=== PATIENT | male | born 1940 | race Caucasian/White ===

== ENCOUNTER 2019-12-07 17:33 | Inpatient (IN) ==
[2019-12-07] MEDS ORDERED: ONDANSETRON 4 MG/2 ML VIAL IV ONE (18:19)
--- NOTE | 2019-12-07 18:25 | Emergency Department Note ---
Nausea/Vomiting/Diarrhea HPI - General Chief complaint: Nausea/Vomiting/Diarrhea Stated complaint: diarrhea Source: patient Mode of arrival: ambulatory Limitations: no limitations - History of Present Illness HPI Narrative: 78-year-old male comes in complaining of fever. He has been sick for the last 2 weeks mainly with diarrhea intermittently. The sounds like loose stools but his is not sure. He is not been acting himself and has been thinking slower and moving slower. Denies shortness of breath or cough. He does have a history of postherpetic neuralgia as he had shingles 6 months ago and has not really recovered. He is not giving me much in the way of history, but he does answer most review of systems questions. He is tachycardic - Related Data Home Medications Medication Instructions Recorded Confirmed blood sugar diagnostic See Dose Instructions .ROUTE 01/12/17 03/06/19 .MEDSUPPLY aspirin 81 mg tablet,delayed 81 mg PO QDAY 03/10/17 06/12/19 release omega-3 360 oi-aal-hzi-fish oil 1 cap PO QHS cap 05/02/17 06/12/19 1,200 mg capsule,delayed release cholecalciferol (vitamin D3) 25 1,000 unit PO QHS cap 08/09/17 06/12/19 mcg (1,000 unit) capsule folic acid 800 mcg tablet 400 mcg PO QDAY 08/09/17 06/12/19 mecobalamin (vitamin B12) 1,000 500 mcg SUBLINGUAL QHS tab 08/09/17 06/12/19 mcg disintegrating tablet,sublingual Previous Rx's Medication Instructions Recorded allopurinol 300 mg tablet 300 mg PO QDAY #90 tab 11/16/18 atorvastatin 40 mg tablet 40 mg PO QDAY #90 tab 11/16/18 furosemide 20 mg tablet 20 mg PO QAM #90 tab 11/16/18 losartan 50 mg tablet 50 mg PO QDAY #90 tab 11/16/18 blood sugar diagnostic See Dose Instructions .ROUTE 12/04/18 .MEDSUPPLY #100 each fexofenadine 180 mg tablet 180 mg PO QDAY #30 tab 06/12/19 triamcinolone acetonide 0.1 % 1 applic TOPICAL BID #30 g 06/12/19 topical cream Allergies Allergy/AdvReac Type Severity Reaction Status Date / Time KALEY Inhibitors Allergy Unknown Unknown Verified 03/06/19 08:10 clindamycin [From Cleocin] Allergy Unknown Unknown Verified 03/06/19 08:10 lisinopril [From Zestril] Allergy Unknown Unknown Verified 03/06/19 08:10 pioglitazone [From Actos] Allergy Unknown Unknown Verified 03/06/19 08:10 Review of Systems All systems ED: reviewed and negative except as stated. Past Medical History - Past Medical History Attestation: Yes: The following information was validated with the patient. 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) CKD (chronic kidney disease) stage 4, GFR 15-29 ml/min (Chronic) Right knee pain (Chronic) Stroke (Chronic) Osteoporosis (Chronic) Joint pain (Chronic) Arthritis (Chronic) Type 2 diabetes mellitus without complication (Chronic) Sleep apnea (Chronic) Osteoarthritis (Chronic) Mixed hyperlipidemia (Chronic) Essential (primary) hypertension (Chronic) Encounter for long-term (current) use of high-risk medication (Chronic) Benign enlargement of prostate (Chronic) Past Surgical History (Last Reviewed 06/12/19 @ 16:02 by Nabeel Samaniego PA-C) H/O colonoscopy (Chronic 05/19/15) H/O vasectomy (Chronic) History of left knee replacement (Chronic 12/04/12) - Social History smoking status: Never smoker Physical Exam No acute distress resting comfortably. Normocephalic atraumatic. Conjunctive are clear sclerae white nonicteric. No nasal discharge or congestion. Oropharynx pink and moist. Neck is supple without lymphadenopathy or thyromegaly. Heart is regular rate and rhythm no murmur appreciated. Lungs are clear to auscultation bilaterally without wheezes rales rhonchi or respiratory distress. Abdomen is soft nontender nondistended. No peritoneal signs or guarding. He does have trace to +1 edema bilaterally to the knee or so. He is alert does seem to be oriented but he does seem to be mentating slow, most history is from his . Limitations: no limitations Course Vital Signs Temperature 101.1 F H 12/07/19 17:34 Pulse Rate 156 H 12/07/19 17:34 Respiratory Rate 18 12/07/19 17:34 Blood Pressure 113/60 12/07/19 17:34 Pulse Oximetry (%) 95 12/07/19 17:34 Temperature 98.5 F 12/07/19 20:14 Pulse Rate 70 12/07/19 20:46 Respiratory Rate 16 12/07/19 20:46 Blood Pressure 113/54 12/07/19 20:46 Pulse Oximetry (%) 94 12/07/19 20:46 Nausea/Vomiting/Diarrhea - Lab Data Lab results reviewed: Yes I reviewed the patient's lab results. Result diagrams: 12/07/19 18:31 12/07/19 18:31 Lab Results 12/07/19 12/07/19 12/07/19 Range/Units 18:30 18:30 18:31 WBC 14.1 H (4.50-11.00) K/mcL RBC 3.41 L (4.63-6.08) M/mcL Hgb 10.7 L (13.7-17.5) g/dL Hct 32.0 L (40.1-51.0) % POC Hct (41.0-55.0) % MCV 93.8 (80.0-100.0) fL MCH 31.4 (26.0-34.0) pg MCHC 33.4 (31.0-36.0) g/dL RDW 13.2 (11.5-14.5) % Plt Count 235 (140-440) K/mcL MPV 10.2 (7.4-10.4) fL Gran % 89.0 H (38.0-78.0) % Lymph % (Auto) 5.1 L (15.5-49.0) % Cloud % (Auto) 4.7 (1.0-12.0) % Eos % (Auto) 1.0 (0.0-7.0) % Baso % (Auto) 0.2 (0.0-2.0) % Gran # 12.54 H (1.80-8.00) K/mcL Lymph # (Auto) 0.72 L (1.50-4.80) K/mcL Cloud # (Auto) 0.66 (0.10-0.90) K/mcL Eos # (Auto) 0.14 (0.00-0.70) K/mcL Baso # (Auto) 0.03 (0.00-0.30) K/mcL VBG Lactic Acid 1.4 (0.5-2.0) mmol/L POC Sodium (133-145) mmol/L Sodium (133-145) mmol/L POC Potassium (3.3-5.1) mmol/L Potassium (3.3-5.1) mmol/L POC Chloride (96-108) mmol/L Chloride (96-108) mmol/L Carbon Dioxide (22-30) mmol/L POC Total CO2 (22-30) mmol/L Anion Gap (8-16) POC BUN (8-23) mg/dl BUN (8-23) mg/dl Creatinine (0.7-1.2) mg/dl POC Creatinine (0.7-1.2) mg/dl GFR Calculation Glucose (70-105) mg/dL POC Glucose (70-105) mg/dL Calcium (8.6-10.4) mg/dl POC WB Ioniz Calcium (1.16-1.32) mmol/L Total Bilirubin (0.0-1.0) mg/dL AST (0-37) U/l ALT (0-40) U/l Alkaline Phosphatase (39-117) U/L Troponin T 0.02 (0-0.03) ng/ml Total Protein (5.9-8.4) gm/dL Albumin (3.2-5.2) gm/dL Globulin (2.2-3.7) gm/dL Albumin/Globulin Ratio (1.0-2.3) Lipase (7-60) U/L 12/07/19 Range/Units 18:31 WBC (4.50-11.00) K/mcL RBC (4.63-6.08) M/mcL Hgb (13.7-17.5) g/dL Hct (40.1-51.0) % POC Hct 32.0 L (41.0-55.0) % MCV (80.0-100.0) fL MCH (26.0-34.0) pg MCHC (31.0-36.0) g/dL RDW (11.5-14.5) % Plt Count (140-440) K/mcL MPV (7.4-10.4) fL Gran % (38.0-78.0) % Lymph % (Auto) (15.5-49.0) % Cloud % (Auto) (1.0-12.0) % Eos % (Auto) (0.0-7.0) % Baso % (Auto) (0.0-2.0) % Gran # (1.80-8.00) K/mcL Lymph # (Auto) (1.50-4.80) K/mcL Cloud # (Auto) (0.10-0.90) K/mcL Eos # (Auto) (0.00-0.70) K/mcL Baso # (Auto) (0.00-0.30) K/mcL VBG Lactic Acid (0.5-2.0) mmol/L POC Sodium 135 (133-145) mmol/L Sodium 135 (133-145) mmol/L POC Potassium 3.5 (3.3-5.1) mmol/L Potassium 3.6 (3.3-5.1) mmol/L POC Chloride 102 (96-108) mmol/L Chloride 100 (96-108) mmol/L Carbon Dioxide 20 L (22-30) mmol/L POC Total CO2 22 (22-30) mmol/L Anion Gap 15.0 (8-16) POC BUN 34 H (8-23) mg/dl BUN 38 H (8-23) mg/dl Creatinine 2.5 H (0.7-1.2) mg/dl POC Creatinine 2.7 H (0.7-1.2) mg/dl GFR Calculation 23 Glucose 155 H (70-105) mg/dL POC Glucose 149 H (70-105) mg/dL Calcium 8.2 L (8.6-10.4) mg/dl POC WB Ioniz Calcium 1.10 L (1.16-1.32) mmol/L Total Bilirubin 1.0 (0.0-1.0) mg/dL AST 101 H (0-37) U/l ALT 118 H (0-40) U/l Alkaline Phosphatase 101 (39-117) U/L Troponin T (0-0.03) ng/ml Total Protein 6.4 (5.9-8.4) gm/dL Albumin 3.5 (3.2-5.2) gm/dL Globulin 2.9 (2.2-3.7) gm/dL Albumin/Globulin Ratio 1.2 (1.0-2.3) Lipase 18 (7-60) U/L Influenza swab is negative so respiratory panel ordered - Radiology Data Radiology results reviewed: Yes I reviewed the patient's radiology results. Chest x-ray shows some possible scarring but no acute infiltrate CT scan of the abdomen and pelvis without contrast shows pancolitis with sparing of the transverse colon. No perforation or abscess is seen - EKG Data EKG attestation: Yes I reviewed and interpreted this EKG., Yes There are no EKG findings of acute coronary syndrome EKG results narrative: EKG shows atrial flutter with a 2-1 block and a rapid ventricular response. Left anterior fascicular block noted-is seen on previous EKGs as well. New right bundle branch block Disposition Pt seen by MARKETING RESEARCH INTERN/PA only: No Clinical Impression: Atrial flutter with rapid ventricular response, CKD (chronic kidney disease) stage 4, GFR 15-29 ml/min, Colitis Summary: Fever with GI symptoms with diarrhea. He does report a history of postherpetic neuralgia but this could be masquerading as diverticulitis. He does not report significant pain however and his belly is nontender. So we will first look at common causes of fever including urinary tract infection and influenza. If these are negative we may check a respiratory panel and do further testing. This could be COVID but he has no respiratory symptoms at this time so this is less likely. Get lab and a chest x-ray. Further testing pending results. EKG because he is currently tachycardic EKG shows atrial flutter with left anterior fascicular block and right bundle branch block. The right bundle branch block is new as is the a flutter. I ordered metoprolol to help with this but he spontaneously converted. His rate went into the 80s and went into sinus rhythm with rest Influenza swab was negative so we ordered respiratory panel. Leukocytosis of 14 but lactic acid was normal. Chest x-ray was unrevealing CT scan of the abdomen and pelvis without contrast was ordered because of the possibility of diverticulitis with his left lower quadrant pain and diarrhea He was not able to urinate for us but his bladder scan showed over 225. CT scan of the abdomen pelvis without contrast came back showing pancolitis with sparing of the transverse colon. This could be ischemic colitis versus C. difficile colitis. Respiratory panel were negative I discussed the case with Dr. Wiley who agreed to investigate his situation further with endoscopy as an inpatient. I then discussed the case with Dr. Hardwick who agreed except the patient for further care and evaluation. He recommended we get blood cultures and start antibiotics with ciprofloxacin and Flagyl. C. difficile is also ordered and pending if we can get a stool sample. Disposition: Xfer As Inpt ([facility]) Condition: Fair Referrals: Nargis Ríos MD [Primary Care Provider] -
[2019-12-07 18:35] LABS: POC Blood Urea Nitrogen 34 mg/dl (8-23); POC CO2 22 mmol/L (22-30); POC Chloride 102 mmol/L (96-108); POC Creatinine 2.7 mg/dl (0.7-1.2); POC Glucose, Random 149 mg/dL (70-105); POC Potassium 3.5 mmol/L (3.3-5.1); POC Sodium 135 mmol/L (133-145)
[2019-12-07] MEDS ORDERED: ACETAMINOPHEN 325 MG TABLET PO ONE (18:36)
[2019-12-07 19:08] LABS: Basophils # (Auto) 0.03 K/mcL (0.00-0.30); Basophils % (Auto) 0.2 % (0.0-2.0); Eosinophils # (Auto) 0.14 K/mcL (0.00-0.70); Hemoglobin 10.7 g/dL (13.7-17.5); Lymphocytes # (Auto) 0.72 K/mcL (1.50-4.80); Lymphocytes % (Auto) 5.1 % (15.5-49.0); Mean Cell Volume 93.8 fL (80.0-100.0); Mean Corpuscular HGB Conc 33.4 g/dL (31.0-36.0); Mean Platelet Volume 10.2 fL (7.4-10.4); Monocytes # (Auto) 0.66 K/mcL (0.10-0.90); Monocytes % (Auto) 4.7 % (1.0-12.0); Platelet Count 235 K/mcL (140-440); RBC 3.41 M/mcL (4.63-6.08); Red Cell Distribution Width 13.2 % (11.5-14.5); WBC 14.1 K/mcL (4.50-11.00)
[2019-12-07 19:27] LABS: ALT/SGPT 118 U/l (0-40); AST/SGOT 101 U/l (0-37); Albumin 3.5 gm/dL (3.2-5.2); Albumin/Globulin Ratio 1.2 (1.0-2.3); Alkaline Phosphatase 101 U/L (39-117); Blood Urea Nitrogen 38 mg/dl (8-23); Calcium 8.2 mg/dl (8.6-10.4); Carbon Dioxide 20 mmol/L (22-30); Chloride 100 mmol/L (96-108); Globulin 2.9 gm/dL (2.2-3.7); Glomerular Filtration Rate 23; Glucose 155 mg/dL (70-105)
[2019-12-07] MEDS ORDERED: 0.9 % SODIUM CHLORIDE 1,000 ML IV ONE (20:20)
[2019-12-07] MEDS ORDERED: CIPROFLOXACIN 400 MG/200 ML BAG IV ONE (22:15)
[2019-12-07] MEDS ORDERED: metroNIDAZOLE 500 MG/100 ML BAG IV ONE (22:16)
--- NOTE | 2019-12-07 22:16 | Internal Med History&Physical ---
Medical - H&P: [facility] Patient information: Note initiated : 12/07/19 at 10:16 pm Service Date, if different from initiated Date: [] Patient: Vladimir Hinojosa a 78 y/o M admitted on for diarrhea. Chief Complaint: [] Chief complaint: Abdominal pain, diarrhea History of present illness: Mr. Hinojosa is a 78 year old M with a history of hypertension, gout who lives with his in [place] and presents after 2 weeks onset of intermittent abdominal cramping, diarrhea and nausea along with loss of appetite. Patient has been getting gradually getting weak along with increasing cramping. He d escribes diarrhea as watery with mucus without blood 3-4 times a day normal volume. He denies associated joint pain, rash, dysuria but endorses to shaking chills and intermittent fevers. He denies bloody stool or bloody emesis. With worsening symptoms he presents to the ER. Initial work-up was consistent with pancolitis on CT. Was started on IV fluids/antibiotics after cultures were drawn. Hospitalist service was consulted. At the time evaluation patient is accompanied with his . He denies recent exposure to sick contacts or antibiotic use. He further denies consuming raw or uncooked meat or seafood. He denies changes in medications. He denies weight loss or change in stool caliber. Review of systems A 10 point review system was performed and is negative except for discussed above Medical - H&P: PMH Medical history: Localized edema due to fluid overload (Chronic) Anemia in stage 4 chronic kidney disease (Chronic) Secondary hyperparathyroidism of renal origin (Chronic) Vitamin D deficiency (Chronic) Hypertension in stage 4 chronic kidney disease due to type 2 diabetes mellitus (Chronic) CKD (chronic kidney disease) stage 4, GFR 15-29 ml/min (Chronic) Right knee pain (Chronic) Stroke (Chronic) Osteoporosis (Chronic) Joint pain (Chronic) Arthritis (Chronic) Type 2 diabetes mellitus without complication (Chronic) Sleep apnea (Chronic) Osteoarthritis (Chronic) Mixed hyperlipidemia (Chronic) Essential (primary) hypertension (Chronic) Encounter for long-term (current) use of high-risk medication (Chronic) Benign enlargement of prostate (Chronic) Surgical History H/O colonoscopy (Chronic 05/19/15) H/O vasectomy (Chronic) History of left knee replacement (Chronic 12/04/12) Family History Unknown Arthritis Multiple family members Mother Cancer Dementia Family/Other Dementia Aunt-maternal Father DMII (diabetes mellitus, type 2) Social History marital status: smoking status: Never smoker alcohol intake frequency: does not drink substance use type: does not use Medical - H&P: Meds Home Medications Medication Instructions Recorded Confirmed Type blood sugar diagnostic See Dose Instructions .ROUTE 01/12/17 03/06/19 History .MEDSUPPLY aspirin 81 mg tablet,delayed 81 mg PO QDAY 03/10/17 12/08/19 History release omega-3 360 qo-pvk-hho-fish oil 1 cap PO QHS cap 05/02/17 12/08/19 History 1,200 mg capsule,delayed release cholecalciferol (vitamin D3) 25 1,000 unit PO QHS cap 08/09/17 12/08/19 History mcg (1,000 unit) capsule folic acid 800 mcg tablet 400 mcg PO QDAY 08/09/17 12/08/19 History mecobalamin (vitamin B12) 1,000 500 mcg SUBLINGUAL QHS tab 08/09/17 12/08/19 History mcg disintegrating tablet,sublingual allopurinol 300 mg tablet 300 mg PO QDAY #90 tab 11/16/18 12/08/19 Rx atorvastatin 40 mg tablet 40 mg PO QDAY #90 tab 11/16/18 06/12/19 Rx furosemide 20 mg tablet 20 mg PO QAM #90 tab 11/16/18 12/08/19 Rx losartan 50 mg tablet 50 mg PO QDAY #90 tab 11/16/18 12/08/19 Rx blood sugar diagnostic See Dose Instructions .ROUTE 12/04/18 03/06/19 Rx .MEDSUPPLY #100 each fexofenadine 180 mg tablet 180 mg PO QDAY #30 tab 06/12/19 12/08/19 Rx triamcinolone acetonide 0.1 % 1 applic TOPICAL BID #30 g 06/12/19 12/08/19 Rx topical cream Allergies Allergy/AdvReac Type Severity Reaction Status Date / Time KALEY Inhibitors Allergy Unknown Unknown Verified 03/06/19 08:10 clindamycin [From Cleocin] Allergy Unknown Unknown Verified 03/06/19 08:10 pioglitazone [From Actos] Allergy Unknown Unknown Verified 03/06/19 08:10 Medical - H&P: Exam - Constitutional Vitals: Temp Pulse Resp BP Pulse Ox 98.5 F 70 16 113/54 94 12/07/19 20:14 12/07/19 20:46 12/07/19 20:46 12/07/19 20:46 12/07/19 20:46 General appearance: obese Exam: Head normocephalic Oral cavity dry No ear nose discharge Eye movement symmetrical Neck lymphadenopathy S1-S2 regular rhythm no murmur Diminished breath sounds bases Abdomen slightly tender distended increased bowel sounds Lower extremity no sinus clubbing or joint swelling Skin no suspicious lesion Psych alert cooperative no anxiety Neuro nonfocal Medical - H&P: Reslt - Labs CBC & Chem 7: 12/08/19 04:45 12/08/19 04:45 Labs: Short CBC 12/07/19 Range/Units 18:31 WBC 14.1 H (4.50-11.00) K/mcL Hgb 10.7 L (13.7-17.5) g/dL Hct 32.0 L (40.1-51.0) % Plt Count 235 (140-440) K/mcL BMP 12/07/19 18:31 Sodium 135 Potassium 3.6 Chloride 100 Carbon Dioxide 20 L BUN 38 H Creatinine 2.5 H Glucose 155 H Calcium 8.2 L Cardiac Enzymes 12/07/19 Range/Units 18:30 Troponin T 0.02 (0-0.03) ng/ml Liver Function 12/07/19 Range/Units 18:31 Total Bilirubin 1.0 (0.0-1.0) mg/dL AST 101 H (0-37) U/l ALT 118 H (0-40) U/l Alkaline Phosphatase 101 (39-117) U/L Albumin 3.5 (3.2-5.2) gm/dL Medical - H&P: A/P (1) Acute colitis Current visit: Yes Status: Acute * Acute colitis likely infectious versus ischemic. White count 14.1. Pancultures. De-escalate based on stool studies. Start empiric Flagyl/ciprofloxacin * Abdominal pain continue pain management on opioids * Sepsis secondary to above continue antibiotic coverage and management guidelines * Volume depletion secondary to diarrhea-continue crystalloids * History of chronic kidney disease stage IV. Avoid nephrotoxins. Monitor renal function. * History of gout continue allopurinol * History of hypertension restart antihypertensives once systolics over 140. * Hyperlipidemia continue statin * Prophylaxis heparin Plan * Inpatient admission * Crystalloids * Sepsis management guidelines * Stool studies/cultures * Pre-existing medical mission management as above * Liquid diet * PT OT
[2019-12-07 23:27] LABS: Appearance,Urine CLEAR; Bilirubin,Urine NEG (NEG); Color,Urine YELLOW; Culture Indicated,Urine NO; Glucose,Urine (UA) NEGATIVE (NEG); Ketones,Urine NEG (NEG); Leukocyte Esterase,Urine NEG /uL (NEG); Nitrate,Urine NEG (NEG); Protein,Urine NEG (NEG); Specific Gravity,Urine 1.016 (1.000-1.035); Urine Blood NEG mg/dL (<0.03); Urobilinogen,Urine NEG (NEG)
[2019-12-07] MEDS ORDERED: guaiFENesin/CODEINE 10 ML UDC PO PRN (23:57)
[2019-12-07] MEDS ORDERED: MAGNESIUM SULFATE 2 GM/50 ML BAG IV PRN (23:57)
[2019-12-07] MEDS ORDERED: ONDANSETRON 4 MG/2 ML VIAL IV PRN (23:57)
[2019-12-07] MEDS ORDERED: BISACODYL 10 MG SUPP.RECT PR PRN (23:57)
[2019-12-07] MEDS ORDERED: LEVOFLOXACIN 750 MG/150 ML BAG IV SCH (23:57)
[2019-12-07] MEDS ORDERED: HYDROmorphone 2 MG/ML VIAL IV PRN (23:57)
[2019-12-07] MEDS ORDERED: metroNIDAZOLE 500 MG/100 ML BAG IV SCH (23:57)
[2019-12-07] MEDS ORDERED: POTASSIUM CHLORIDE 40 MEQ in DEXTROSE 5% IN WATER 500 ML IV PRN (23:57)
[2019-12-07] MEDS ORDERED: ONDANSETRON 4 MG ODT TABLET SL PRN (23:57)
[2019-12-07] MEDS ORDERED: MELATONIN 3 MG TABLET PO PRN (23:57)
[2019-12-07] MEDS ORDERED: POLYETHYLENE GLYCOL 3350 17 GM PACKET PO PRN (23:57)
[2019-12-07] MEDS ORDERED: ACETAMINOPHEN 325 MG TABLET PO PRN (23:57)
[2019-12-07] MEDS ORDERED: POTASSIUM CHLORIDE 20 MEQ PACKET PO PRN (23:57)
[2019-12-08] MEDS: LACTATED RINGERS 1,000 ML IV SCH ×4 (00:36→20:43)
[2019-12-08] MEDS ORDERED: LEVOFLOXACIN 750 MG/150 ML BAG IV ONE (00:37)
[2019-12-08] MEDS: VANCOMYCIN ORAL SOL 1,000 MG/10 ML BOTTLE PO SCH ×5 (01:00→21:52)
[2019-12-08] MEDS ORDERED: HYDROmorphone 2 MG/ML VIAL ONE (01:46)
[2019-12-08] MEDS: METOPROLOL TARTRATE 5 MG/5 ML VIAL IV SCH ×2 (03:24→03:25)
[2019-12-08] MEDS: 0.9 % SODIUM CHLORIDE 10 ML SYRINGE IV SCH ×2 (05:47→14:06)
[2019-12-08 06:03] LABS: Hematocrit 29.2 % (40.1-51.0); Hemoglobin 9.6 g/dL (13.7-17.5); Mean Cell Volume 94.5 fL (80.0-100.0); Mean Corpuscular HGB Conc 32.9 g/dL (31.0-36.0); Mean Platelet Volume 9.9 fL (7.4-10.4); Platelet Count 222 K/mcL (140-440); RBC 3.09 M/mcL (4.63-6.08); Red Cell Distribution Width 13.2 % (11.5-14.5); WBC 14.7 K/mcL (4.50-11.00)
[2019-12-08 06:15] LABS: ALT/SGPT 94 U/l (0-40); AST/SGOT 73 U/l (0-37); Albumin 2.7 gm/dL (3.2-5.2); Albumin/Globulin Ratio 0.9 (1.0-2.3); Alkaline Phosphatase 85 U/L (39-117); Bilirubin,Direct < 0.2 mg/dL (0.0-0.3); Bilirubin,Total 0.8 mg/dL (0.0-1.0); Blood Urea Nitrogen 35 mg/dl (8-23); Calcium 8.1 mg/dl (8.6-10.4); Carbon Dioxide 20 mmol/L (22-30); Chloride 98 mmol/L (96-108); Globulin 2.9 gm/dL (2.2-3.7); Glomerular Filtration Rate 27; Glucose 142 mg/dL (70-105); Lactate Dehydrogenase 230 U/L (94-250); Phosphorous 3.3 mg/dL (2.7-4.5); Triglycerides 103 mg/dl (<150); Uric Acid 5.9 mg/dL (2.5-8.0)
--- NOTE | 2019-12-08 06:40 | XRay Report ---
CLINICAL INFORMATION: fever, nausea COMPARISON: 12/07/2019 FINDINGS: Cardiomediastinal silhouette and pulmonary vessels are unremarkable. Minimal bibasilar airspace disease appreciated. No effusions IMPRESSION: Minimal bibasilar airspace disease more likely atelectasis or developing infiltrate. Consider two view upright chest x-ray in the next 24 hours, if there is a clinical suspicion for developing pneumonia Interpreted and Authenticated by: John Uriarte 12/08/19
[2019-12-08] MEDS: metroNIDAZOLE 500 MG/100 ML BAG IV SCH ×3 (08:00→21:58)
[2019-12-08] MEDS: HEPARIN 5,000 UNIT/ML VIAL SQ SCH ×2 (08:01→21:50)
[2019-12-08] MEDS: MULTIVIT,THER IRON,CA,FA & MIN 1 TABLET PO SCH (08:01)
[2019-12-08] MEDS: DOCUSATE SODIUM 100 MG CAPSULE PO SCH ×2 (08:01→21:50)
[2019-12-08 08:09] LABS: Band Neutrophils % 2 % (0-10); Lymphocytes % 5 % (15-49); Monocytes % (Manual) 8 % (1-12); Platelet Estimate NORMAL (NORMAL); RBC Morphology NORMAL (NORMAL); Segmented Neutrophils % 85 % (38-78)
--- NOTE | 2019-12-08 08:23 | Cat Scan Report ---
CLINICAL INFORMATION: Abdominal pain and diarrhea COMPARISON: None. TECHNIQUE: 0.625 mm helical slices were obtained from the mid heart through the subtrochanteric regions. Following reconstruction, 2.5 mm sagittal, coronal and axial reformatted images were processed and reviewed at bone and soft tissue windows.The exam was performed using radiation dose optimization techniques including, but not limited to, automated exposure control, adjustment of the mA and/or kV according to patient size and use of iterative reconstruction technique. FINDINGS: Lung bases show scattered scarring and/or atelectasis. There are no effusions. Visualized heart is grossly normal in size. Small hiatal hernia noted Abdominal images show the noncontrasted gallbladder and bile ducts, liver, both adrenal glands, spleen, pancreas and aorta to be normal in size, configuration and attenuation without focal lesion. A 3 cm simple cyst in superior pole the left kidney is unchanged since eight 12/13/2017 renal ultrasound. Both kidneys are normal in size, each approximately 10 cm in length, with moderate lobulation and slight perinephric stranding. Pelvic images show prostate to be mildly enlarged: 5.8 x 4 cm. Urinary bladder is unremarkable. There is marked eccentric wall thickening of a 10 cm segment of distal descending and proximal sigmoid colon with moderate wall thickening of the remaining descending colon including the splenic flexure. There is moderate pericolonic edema as well. Equivocal thickening of these cecum with pericolonic stranding appreciated. Stomach is unremarkable. There is a 10 mm periampullary diverticulum projecting from the descending duodenum into the pancreas. The remaining small bowel is unremarkable. Appendix is not identified and may be surgically absent. There is no free air, free fluid or adenopathy. Bone windows moderate central canal and IV foraminal narrowing due to broad disc protrusion and facet arthropathy at L2-3 L3-4 and L4-5. No focal osseous lesions IMPRESSION: 1. Severe concentric wall thickening of a 10 cm segment of the distal descending colon and proximal sigmoid moderate pericolonic inflammation. Moderate, similar changes seen throughout the ascending colon including the splenic flexure. There is also equivocal thickening of the cecum with minimal stranding of the perinephric fat. Suspect infectious or inflammatory colitis. Ischemic colitis is possible, but less likely - suggest GI referral for colonoscopy 2. 3 cm simple cyst superior pole left kidney stable since 2018 ultrasound. 3. Small hiatal hernia 4. 10 mm periampullary diverticula. Interpreted and Authenticated by: John Uriarte 12/08/19
[2019-12-08] MEDS: FEXOFENADINE 180 MG TABLET PO SCH (09:12)
[2019-12-08] MEDS: LOSARTAN 50 MG TABLET PO SCH (09:13)
[2019-12-08] MEDS: ALLOPURINOL 300 MG TABLET PO SCH (09:13)
[2019-12-08] MEDS: ASPIRIN 81 MG TAB.CHEW PO SCH (09:13)
[2019-12-08] MEDS: TRIAMCINOLONE CREAM 0.1% 15G 1 DOSE TUBE TOPICAL SCH ×2 (09:13→21:50)
[2019-12-08] MEDS: FOLIC ACID 1 MG TABLET PO SCH (09:13)
--- NOTE | 2019-12-08 09:48 | Internal Med Progress Note ---
Medical - PN: Subj Patient information: Note initiated : 12/08/19 at 9:44 am Service Date, if different from initiated Date: [] Patient: Vladimir Hinojosa 78 y/o M admitted on 12/07/19 for diarrhea. Chief Complaint: [] Interval history: Mr. Hinojosa is a 78 year old M with a history of hypertension, gout who lives w ith his in [place] and presents after 2 weeks onset of intermittent abdominal cramping, diarrhea and nausea along with loss of appetite. Patient has been getting gradually getting weak along with increasing cramping. He describes diarrhea as watery with mucus without blood 3-4 times a day normal volume. He denies associated joint pain, rash, dysuria but endorses to shaking chills and intermittent fevers. He denies bloody stool or bloody emesis. With worsening symptoms he presents to the ER. Initial work-up was consistent with pancolitis on CT. Was started on IV fluids/antibiotics after cultures were drawn. Hospitalist service was consulted. At the time evaluation patient is accompanied with his . He denies recent exposure to sick contacts or antibiotic use. He further denies consuming raw or uncooked meat or seafood. He denies changes in medications. He denies weight loss or change in stool caliber. 12/07-C. difficile positive. Started on oral vancomycin. Continue seizure precautions. No overnight fever chills. White count 14.7, sodium 130, creatinine 2.2, fever down from 10 1-98.5. Patient does not feel well and complains of loss of appetite. Multiple bowel movement since last night. CT abdomen shows severe concentric wall thickening of descending/proximal sigmoid: Consistent with colitis - Constitutional Vitals: Vital Signs Temp Pulse Resp BP Pulse Ox 98.5 F 81 22 146/70 96 12/08/19 04:00 12/08/19 02:00 12/08/19 06:00 12/08/19 06:00 12/08/19 06:00 Period Temp Pulse Resp BP Sys/Mcgowan Pulse Ox Last 24 Hr 98.5 F-102.1 F 65-160 8-26 109-146/52-81 93-100 Intake and Output 12/07/19 12/08/19 12/08/19 21:59 05:59 13:59 Intake Total 1000 550 Output Total 275 Balance 1000 275 Weight 222 lb 211 lb 8 oz Intake & Output: Intake & Output 12/07/19 12/08/19 12/08/19 21:59 05:59 13:59 Intake Total 1000 550 Output Total 275 Balance 1000 275 Weight 222 lb 211 lb 8 oz Intake: IV 1000 550 Sodium Chloride 0.9% 1,000 ml @ 1000 Wide Open IV BOLUS ONE Rx#: [id number] Output: Void Amount 125 Stool 150 Other: # Voids 1 # Bowel Movements 0 General appearance: moderate distress Exam: Abdominal discomfort Tender abdomen Nonlabored breathing Anxious Fatigue lethargic Medical - PN: Obj Da - Labs CBC & Chem 7: 12/08/19 04:45 12/08/19 04:45 Labs: Abnormal Lab Results 12/08/19 12/08/19 12/07/19 04:45 04:45 18:31 WBC 14.7 H RBC 3.09 L Hgb 9.6 L Hct 29.2 L POC Hct 32.0 L Gran % Lymph % (Auto) Gran # Lymph # (Auto) Seg Neutrophils % 85 H Lymphocytes % 5 L Sodium 130 L Carbon Dioxide 20 L 20 L POC BUN 34 H BUN 35 H 38 H Creatinine 2.2 H 2.5 H POC Creatinine 2.7 H Glucose 142 H 155 H POC Glucose 149 H Calcium 8.1 L 8.2 L POC WB Ioniz Calcium 1.10 L AST 73 H 101 H ALT 94 H 118 H Total Protein 5.6 L Albumin 2.7 L Albumin/Globulin Ratio 0.9 L 12/07/19 18:31 WBC 14.1 H RBC 3.41 L Hgb 10.7 L Hct 32.0 L POC Hct Gran % 89.0 H Lymph % (Auto) 5.1 L Gran # 12.54 H Lymph # (Auto) 0.72 L Seg Neutrophils % Lymphocytes % Sodium Carbon Dioxide POC BUN BUN Creatinine POC Creatinine Glucose POC Glucose Calcium POC WB Ioniz Calcium AST ALT Total Protein Albumin Albumin/Globulin Ratio Meds: Medications Acetaminophen (Tylenol) 650 mg PO Q4-6HP PRN; Protocol PRN Reason: Per Pain Protocol/Fever > 101 Allopurinol (Zylopriim) 300 mg PO QDAY [facility] Last Admin: 12/08/19 09:13 Dose: 300 mg Documented by: Aspirin (Aspirin) 81 mg PO DAILY [facility] Last Admin: 12/08/19 09:13 Dose: 81 mg Documented by: Bisacodyl (Dulcolax) 10 mg [place] Q2-3DAYS PRN PRN Reason: Constipation Cyanocobalamin (Vitamin B-12) 500 mcg PO QHS [facility] Docusate Sodium (Colace) 100 mg PO BID [facility] Last Admin: 12/08/19 08:01 Dose: Not Given Documented by: Fexofenadine HCl ([place]) 180 mg PO QDAY [facility] Last Admin: 12/08/19 09:12 Dose: 180 mg Documented by: Folic Acid (Folic Acid) 1 mg PO DAILY [facility] Last Admin: 12/08/19 09:13 Dose: 1 mg Documented by: Guaifenesin/Codeine Phosphate (Robitussin Ac) 10 ml PO Q4HP PRN PRN Reason: Cough Heparin Sodium (Porcine) (Heparin) 5,000 unit SQ Q12 [facility] Last Admin: 12/08/19 08:01 Dose: 5,000 unit Documented by: Hydromorphone HCl (Dilaudid) 0 mg IV Q4HP PRN; Protocol PRN Reason: Per Pain Protocol Last Admin: 12/08/19 01:50 Dose: 0.5 mg Documented by: Lactated Ringer's (Lactated Ringers) 1,000 mls @ 100 mls/hr IV .Q10H [facility] Stop: 12/09/19 05:56 Last Admin: 12/08/19 09:39 Dose: Not Given Documented by: Magnesium Sulfate (Magnesium Sulfate) 2 gm in 50 mls @ 50 mls/hr IV UD PRN PRN Reason: MG = or < 1.7 Potassium Chloride 40 meq/ (Dextrose) 520 mls @ 130 mls/hr IV UD PRN PRN Reason: K+ = or < 3.5 Metronidazole (Flagyl) 500 mg in 100 mls @ 100 mls/hr IV Q8H [facility]; Protocol Last Admin: 12/08/19 08:00 Dose: 100 mls/hr Documented by: Iron Carb/Multivit/[place]/Folic Acid (Multivitamin W/Minerals) 1 tab PO DAILY [facility] Last Admin: 12/08/19 08:01 Dose: 1 tab Documented by: Losartan Potassium (Cozaar) 50 mg PO QDAY [facility] Last Admin: 12/08/19 09:13 Dose: 50 mg Documented by: Melatonin (Melatonin 3mg Tablet) 3 mg PO HSP PRN PRN Reason: Insomnia Ondansetron HCl (Zofran Odt) 4 mg SL Q4-6HP PRN; Protocol PRN Reason: Nausea And Vomiting Ondansetron HCl (Zofran) 4 mg IV Q4-6HP PRN; Protocol PRN Reason: Nausea And Vomiting Last Admin: 12/08/19 09:10 Dose: 4 mg Documented by: Polyethylene Glycol (Miralax) 17 gm PO DAILYP PRN PRN Reason: Constipation Potassium Chloride (Klor-Con) 40 meq PO DAILYP PRN PRN Reason: K+ < 3.5 Last Admin: 12/08/19 08:02 Dose: 40 meq Documented by: Sodium Chloride (Saline Flush) 10 ml IV Q8 [facility] Last Admin: 12/08/19 05:47 Dose: Not Given Documented by: Triamcinolone Acetonide (Kenalog Cream 0.1%) 1 dose TOPICAL BID [facility] Last Admin: 12/08/19 09:13 Dose: 1 dose Documented by: Vancomycin HCl (Vancomycin Oral Lucie) 250 mg PO QID [facility]; Protocol Last Admin: 12/08/19 08:23 Dose: 250 mg Documented by: Medical - PN: A/P - Time Spent With Patient Total time spent is greater than 50% in coordination of care (as documented) at patient's floor/unit and/or counseling patient: 25 - 35 minutes (1) Acute colitis Status: Acute Assessment and plan: * C. difficile entero-colitis -White count up trending. Worsening diarrhea. Continue oral vancomycin. Continue seizure precautions * Severe sepsis secondary to C. difficile enterocolitis continue management per guidelines crystalloid/antibiotic coverage and treatment of primary etiology * Abdominal pain continue pain management on opioids * Volume depletion secondary to diarrhea-continue crystalloids * History of chronic kidney disease stage IV. Creatinine 2.2. Avoid nephrotoxins. Continue monitoring renal function. * History of gout continue allopurinol * History of hypertension restart antihypertensives once systolics over 140. * Hyperlipidemia continue statin * Prophylaxis heparin Plan * Continue oral vancomycin * Crystalloids * Sepsis management guidelines * Pre-existing medical condition management as above * Advance diet as tolerated * PT OT Current Visit: Yes Medical - PN: Qual - VTE Deep Vein Thrombosis/Pulmonary Embolism Present on Admission: No
[2019-12-08] MEDS: CYANOCOBALAMIN (VITAMIN B-12) 500 MCG TABLET PO SCH (21:50)
[2019-12-09] MEDS: 0.9 % SODIUM CHLORIDE 10 ML SYRINGE IV SCH ×4 (00:48→20:47)
[2019-12-09] MEDS: LACTATED RINGERS 1,000 ML IV SCH (02:43)
[2019-12-09] MEDS: metroNIDAZOLE 500 MG/100 ML BAG IV SCH (05:43)
[2019-12-09 05:47] LABS: Hematocrit 30.1 % (40.1-51.0); Mean Cell Volume 93.5 fL (80.0-100.0); Mean Corpuscular HGB Conc 33.2 g/dL (31.0-36.0); Mean Platelet Volume 10.1 fL (7.4-10.4); Platelet Count 252 K/mcL (140-440); RBC 3.22 M/mcL (4.63-6.08); WBC 14.6 K/mcL (4.50-11.00)
[2019-12-09 06:15] LABS: ALT/SGPT 72 U/l (0-40); AST/SGOT 55 U/l (0-37); Albumin 2.8 gm/dL (3.2-5.2); Alkaline Phosphatase 104 U/L (39-117); Bilirubin,Direct < 0.2 mg/dL (0.0-0.3); Bilirubin,Total 0.6 mg/dL (0.0-1.0); Blood Urea Nitrogen 28 mg/dl (8-23); Calcium 8.2 mg/dl (8.6-10.4); Carbon Dioxide 19 mmol/L (22-30); Chloride 99 mmol/L (96-108); Globulin 2.8 gm/dL (2.2-3.7); Glomerular Filtration Rate 33; Glucose 116 mg/dL (70-105); Lactate Dehydrogenase 297 U/L (94-250); Phosphorous 2.9 mg/dL (2.7-4.5); Triglycerides 86 mg/dl (<150)
[2019-12-09 06:37] LABS: Band Neutrophils % 14 % (0-10); Lymphocytes % 2 % (15-49); Monocytes % (Manual) 4 % (1-12); Ovalocytes FEW (NONE SEEN); Platelet Estimate NORMAL (NORMAL); RBC Morphology ABNORMAL (NORMAL); Segmented Neutrophils % 80 % (38-78)
[2019-12-09] MEDS: VANCOMYCIN ORAL SOL 1,000 MG/10 ML BOTTLE PO SCH ×4 (09:00→20:47)
[2019-12-09] MEDS: DOCUSATE SODIUM 100 MG CAPSULE PO SCH ×2 (09:15→20:47)
[2019-12-09] MEDS: LOSARTAN 50 MG TABLET PO SCH (09:30)
[2019-12-09] MEDS: HEPARIN 5,000 UNIT/ML VIAL SQ SCH ×2 (09:30→20:46)
[2019-12-09] MEDS: MULTIVIT,THER IRON,CA,FA & MIN 1 TABLET PO SCH (09:30)
[2019-12-09] MEDS: FOLIC ACID 1 MG TABLET PO SCH (09:31)
[2019-12-09] MEDS: FEXOFENADINE 180 MG TABLET PO SCH (09:31)
[2019-12-09] MEDS: ALLOPURINOL 300 MG TABLET PO SCH (09:31)
[2019-12-09] MEDS: ASPIRIN 81 MG TAB.CHEW PO SCH (09:31)
[2019-12-09] MEDS: TRIAMCINOLONE CREAM 0.1% 15G 1 DOSE TUBE TOPICAL SCH (09:51)
--- NOTE | 2019-12-09 10:15 | Internal Med Progress Note ---
Medical - PN: Subj Patient information: Note initiated : 12/09/19 at 10:13 am Service Date, if different from initiated Date: [] Patient: Vladimir Hinojosa a 78 y/o M admitted on 12/07/19 for diarrhea. Chief Complaint: [] Interval history: Mr. Hinojosa is a 78 year old M with a history of hypertension, gout who lives with his in [place] and presents after 2 weeks onset of intermittent abdominal cramping, diarrhea and nausea along with loss of appetite. Patient has been getting gradually getting weak along with increasing cramping. He describes diarrhea as watery with mucus without blood 3-4 times a day normal volume. He denies associated joint pain, rash, dysuria but endorses to shaking chills and intermittent fevers. He denies bloody stool or bloody emesis. With worsening symptoms he presents to the ER. Initial work-up was consistent with pancolitis on CT. Was started on IV fluids/antibiotics after cultures were drawn. Hospitalist service was consulted. At the time evaluation patient is accompanied with his . He denies recent exposure to sick contacts or antibiotic use. He further denies consuming raw or uncooked meat or seafood. He denies changes in medications. He denies weight loss or change in stool caliber. 12/07-C. difficile positive. Started on oral vancomycin. Continue seizure precautions. No overnight fever chills. White count 14.7, sodium 130, creatinine 2.2, fever down from 10 1-98.5. Patient does not feel well and complains of loss of appetite. Multiple bowel movement since last night. CT abdomen shows severe concentric wall thickening of descending/proximal sigmoid: Consistent with colitis 12/08-patient clinically improving. Diarrhea improved. Nausea improved. Afebrile. White count downtrending. Creatinine down to 1.9. LFTs improving. Stable hemodynamics. - Constitutional Vitals: Vital Signs Temp Pulse Resp BP Pulse Ox 97 F 74 20 148/79 99 12/09/19 10:00 12/09/19 10:00 12/09/19 10:00 12/09/19 10:00 12/09/19 10:00 Period Temp Pulse Resp BP Sys/Mcgowan Pulse Ox Last 24 Hr 97 F-99.3 F 70-82 17-75 123-148/60-79 97-100 Intake and Output 12/08/19 12/09/19 12/09/19 21:59 05:59 13:59 Intake Total 460 1072 428 Output Total 875 200 100 Balance -415 872 328 Weight 228 lb 8 oz Intake & Output: Intake & Output 12/08/19 12/09/19 12/09/19 21:59 05:59 13:59 Intake Total 460 1072 428 Output Total 875 200 100 Balance -415 872 328 Weight 228 lb 8 oz Intake: IV 100 1072 428 Lactated Ringers 1,000 ml @ 100 972 328 mls/hr IV .Q10H [facility] Rx#: [id number] Oral 360 Output: Void Amount 875 200 100 Other: Meal Dinner Percent of Meal Consumed 100% Feeding Ability Independent Urine Appearance Clear Clear Clear Urine Color Bright Yellow Bright Yellow Dark Yellow Urine Odor Strong Stool Size Small Small Small Stool Color Brown Brown Brown Stool Consistency Loose Loose Loose # Voids 1 # Bowel Movements 1 1 1 # Emeses 0 0 General appearance: no acute distress, obese Exam: Alert oriented No anxiety Minimally tender abdomen Nonlabored breathing Medical - PN: Obj Da - Labs CBC & Chem 7: 12/09/19 04:40 12/09/19 04:40 Labs: Abnormal Lab Results 12/09/19 12/09/19 12/08/19 04:40 04:40 04:45 WBC 14.6 H RBC 3.22 L Hgb 10.0 L Hct 30.1 L POC Hct Gran % Lymph % (Auto) Gran # Lymph # (Auto) Seg Neutrophils % 80 H Band Neutrophils % 14 H Lymphocytes % 2 L Ovalocytes Few A Sodium 131 L 130 L Carbon Dioxide 19 L 20 L POC BUN BUN 28 H 35 H Creatinine 1.9 H 2.2 H POC Creatinine Glucose 116 H 142 H POC Glucose Calcium 8.2 L 8.1 L POC WB Ioniz Calcium AST 55 H 73 H ALT 72 H 94 H Lactate Dehydrogenase 297 H Total Protein 5.6 L 5.6 L Albumin 2.8 L 2.7 L Albumin/Globulin Ratio 0.9 L 12/08/19 12/07/19 12/07/19 04:45 18:31 18:31 WBC 14.7 H 14.1 H RBC 3.09 L 3.41 L Hgb 9.6 L 10.7 L Hct 29.2 L 32.0 L POC Hct 32.0 L Gran % 89.0 H Lymph % (Auto) 5.1 L Gran # 12.54 H Lymph # (Auto) 0.72 L Seg Neutrophils % 85 H Band Neutrophils % Lymphocytes % 5 L Ovalocytes Sodium Carbon Dioxide 20 L POC BUN 34 H BUN 38 H Creatinine 2.5 H POC Creatinine 2.7 H Glucose 155 H POC Glucose 149 H Calcium 8.2 L POC WB Ioniz Calcium 1.10 L AST 101 H ALT 118 H Lactate Dehydrogenase Total Protein Albumin Albumin/Globulin Ratio Meds: Medications Acetaminophen (Tylenol) 650 mg PO Q4-6HP PRN; Protocol PRN Reason: Per Pain Protocol/Fever > 101 Allopurinol (Zylopriim) 300 mg PO QDAY [facility] Last Admin: 12/09/19 09:31 Dose: 300 mg Documented by: Aspirin (Aspirin) 81 mg PO DAILY [facility] Last Admin: 12/09/19 09:31 Dose: 81 mg Documented by: Bisacodyl (Dulcolax) 10 mg [place] Q2-3DAYS PRN PRN Reason: Constipation Cyanocobalamin (Vitamin B-12) 500 mcg PO QHS [facility] Last Admin: 12/08/19 21:50 Dose: 500 mcg Documented by: Docusate Sodium (Colace) 100 mg PO BID [facility] Last Admin: 12/09/19 09:15 Dose: Not Given Documented by: Fexofenadine HCl ([place]) 180 mg PO QDAY [facility] Last Admin: 12/09/19 09:31 Dose: 180 mg Documented by: Folic Acid (Folic Acid) 1 mg PO DAILY [facility] Last Admin: 12/09/19 09:31 Dose: 1 mg Documented by: Guaifenesin/Codeine Phosphate (Robitussin Ac) 10 ml PO Q4HP PRN PRN Reason: Cough Heparin Sodium (Porcine) (Heparin) 5,000 unit SQ Q12 [facility] Last Admin: 12/09/19 09:30 Dose: 5,000 unit Documented by: Hydromorphone HCl (Dilaudid) 0 mg IV Q4HP PRN; Protocol PRN Reason: Per Pain Protocol Last Admin: 12/08/19 01:50 Dose: 0.5 mg Documented by: Magnesium Sulfate (Magnesium Sulfate) 2 gm in 50 mls @ 50 mls/hr IV UD PRN PRN Reason: MG = or < 1.7 Potassium Chloride 40 meq/ (Dextrose) 520 mls @ 130 mls/hr IV UD PRN PRN Reason: K+ = or < 3.5 Metronidazole (Flagyl) 500 mg in 100 mls @ 100 mls/hr IV Q8H [facility]; Protocol Last Infusion: 12/09/19 06:45 Dose: Infused Documented by: Iron Carb/Multivit/[place]/Folic Acid (Multivitamin W/Minerals) 1 tab PO DAILY [facility] Last Admin: 12/09/19 09:30 Dose: 1 tab Documented by: Losartan Potassium (Cozaar) 50 mg PO QDAY [facility] Last Admin: 12/09/19 09:30 Dose: 50 mg Documented by: Melatonin (Melatonin 3mg Tablet) 3 mg PO HSP PRN PRN Reason: Insomnia Ondansetron HCl (Zofran Odt) 4 mg SL Q4-6HP PRN; Protocol PRN Reason: Nausea And Vomiting Ondansetron HCl (Zofran) 4 mg IV Q4-6HP PRN; Protocol PRN Reason: Nausea And Vomiting Last Admin: 12/08/19 09:10 Dose: 4 mg Documented by: Polyethylene Glycol (Miralax) 17 gm PO DAILYP PRN PRN Reason: Constipation Potassium Chloride (Klor-Con) 40 meq PO DAILYP PRN PRN Reason: K+ < 3.5 Last Admin: 12/08/19 08:02 Dose: 40 meq Documented by: Sodium Chloride (Saline Flush) 10 ml IV Q8 [facility] Last Admin: 12/09/19 05:43 Dose: 10 ml Documented by: Vancomycin HCl (Vancomycin Oral Lucie) 250 mg PO QID [facility]; Protocol Last Admin: 12/09/19 09:00 Dose: 250 mg Documented by: Medical - PN: A/P - Time Spent With Patient Total time spent is greater than 50% in coordination of care (as documented) at patient's floor/unit and/or counseling patient: 25 - 35 minutes (1) Acute colitis Status: Acute Assessment and plan: * C. difficile entero-colitis -White count up trending. Worsening diarrhea. Continue oral vancomycin. Continue seizure precautions * Severe sepsis with multiple endorgan dysfunction secondary to C. difficile enterocolitis -clinically improving with downtrending white count * Abdominal pain continue pain management on opioids * Acute on chronic renal failure-creatinine down from 2.2-1.5. Continue crystalloids. * Elevated LFTs secondary to sepsis endorgan dysfunction. Clinically improving. * Volume depletion secondary to diarrhea-improved with crystalloids * History of gout continue allopurinol * History of hypertension -antihypertensives on hold until systolics over 140. * Hyperlipidemia continue statin * Prophylaxis heparin Plan * Continue oral vancomycin * Continue crystalloids * Monitor renal function * DC Flagyl * Pre-existing medical condition management as above * Advance diet as tolerated * PT OT Current Visit: Yes Medical - PN: Qual - VTE Deep Vein Thrombosis/Pulmonary Embolism Present on Admission: No
[2019-12-09] MEDS ORDERED: DILTIAZEM 25 MG/5 ML VIAL IV ONE ×2 (13:56→14:03)
[2019-12-09] MEDS: DILTIAZEM 125 MG in DEXTROSE 5% IN WATER 100 ML IV SCH (14:14)
[2019-12-09] MEDS: 0.9 % SODIUM CHLORIDE 250 ML IV SCH (16:00)
[2019-12-09] MEDS: CYANOCOBALAMIN (VITAMIN B-12) 500 MCG TABLET PO SCH (20:46)
[2019-12-10] MEDS: 0.9 % SODIUM CHLORIDE 250 ML IV SCH ×3 (01:50→16:47)
[2019-12-10] MEDS: DILTIAZEM 125 MG in DEXTROSE 5% IN WATER 100 ML IV SCH (02:16)
[2019-12-10] MEDS: 0.9 % SODIUM CHLORIDE 10 ML SYRINGE IV SCH ×3 (05:46→20:46)
[2019-12-10 06:29] LABS: Hematocrit 29.4 % (40.1-51.0); Hemoglobin 9.7 g/dL (13.7-17.5); Mean Cell Volume 93.9 fL (80.0-100.0); Mean Platelet Volume 10.1 fL (7.4-10.4); Platelet Count 274 K/mcL (140-440); RBC 3.13 M/mcL (4.63-6.08); Red Cell Distribution Width 13.2 % (11.5-14.5); WBC 17.2 K/mcL (4.50-11.00)
[2019-12-10 07:03] LABS: ALT/SGPT 56 U/l (0-40); AST/SGOT 44 U/l (0-37); Albumin 2.5 gm/dL (3.2-5.2); Alkaline Phosphatase 97 U/L (39-117); Bilirubin,Direct < 0.2 mg/dL (0.0-0.3); Bilirubin,Total 0.6 mg/dL (0.0-1.0); Blood Urea Nitrogen 25 mg/dl (8-23); Calcium 7.7 mg/dl (8.6-10.4); Carbon Dioxide 18 mmol/L (22-30); Chloride 105 mmol/L (96-108); Globulin 2.6 gm/dL (2.2-3.7); Glomerular Filtration Rate 31; Glucose 98 mg/dL (70-105); Lactate Dehydrogenase 205 U/L (94-250); Phosphorous 2.9 mg/dL (2.7-4.5); Triglycerides 90 mg/dl (<150); Uric Acid 5.1 mg/dL (2.5-8.0)
[2019-12-10 09:00] LABS: Band Neutrophils % 9 % (0-10); Lymphocytes % 8 % (15-49); Monocytes % (Manual) 4 % (1-12); Platelet Estimate NORMAL (NORMAL); RBC Morphology NORMAL (NORMAL); Segmented Neutrophils % 79 % (38-78)
[2019-12-10] MEDS ORDERED: LEVOFLOXACIN 750 MG/150 ML BAG IV SCH (09:00)
[2019-12-10] MEDS: DOCUSATE SODIUM 100 MG CAPSULE PO SCH ×2 (09:33→20:20)
[2019-12-10] MEDS: LOSARTAN 50 MG TABLET PO SCH (09:57)
[2019-12-10] MEDS: ALLOPURINOL 300 MG TABLET PO SCH (09:57)
[2019-12-10] MEDS: HEPARIN 5,000 UNIT/ML VIAL SQ SCH ×2 (09:57→20:37)
[2019-12-10] MEDS: FOLIC ACID 1 MG TABLET PO SCH (09:57)
[2019-12-10] MEDS: ACYCLOVIR 400 MG TABLET PO SCH ×4 (09:57→20:36)
[2019-12-10] MEDS: ASPIRIN 81 MG TAB.CHEW PO SCH (09:57)
[2019-12-10] MEDS: FEXOFENADINE 180 MG TABLET PO SCH (09:57)
[2019-12-10] MEDS: MULTIVIT,THER IRON,CA,FA & MIN 1 TABLET PO SCH (09:57)
[2019-12-10] MEDS: VANCOMYCIN ORAL SOL 1,000 MG/10 ML BOTTLE PO SCH ×4 (09:57→20:46)
--- NOTE | 2019-12-10 11:13 | Internal Med Progress Note ---
Medical - PN: Subj Patient information: Note initiated : 12/10/19 at 11:07 am Service Date, if different from initiated Date: [] Patient: Vladimir Hinojosa a 78 y/o M admitted on 12/07/19 for diarrhea. Chief Complaint: [] Interval history: Mr. Hinojosa is a 78 year old M with a history of hypertension, gout who lives with his in [place] and presents after 2 weeks onset of intermittent abdominal cramping, diarrhea and nausea along with loss of appetite. Patient has been getting gradually getting weak along with increasing cramping. He describes diarrhea as watery with mucus without blood 3-4 times a day normal volume. He denies associated joint pain, rash, dysuria but endorses to shaking chills and intermittent fevers. He denies bloody stool or bloody emesis. With worsening symptoms he presents to the ER. Initial work-up was consistent with pancolitis on CT. Was started on IV fluids/antibiotics after cultures were drawn. Hospitalist service was consulted. At the time evaluation patient is accompanied with his . He denies recent exposure to sick contacts or antibiotic use. He further denies consuming raw or uncooked meat or seafood. He denies changes in medications. He denies weight loss or change in stool caliber. 12/07-C. difficile positive. Started on oral vancomycin. Continue seizure precautions. No overnight fever chills. White count 14.7, sodium 130, creatinine 2.2, fever down from 10 1-98.5. Patient does not feel well and complains of loss of appetite. Multiple bowel movement since last night. CT abdomen shows severe concentric wall thickening of descending/proximal sigmoid: Consistent with colitis 12/08-patient clinically improving. Diarrhea improved. Nausea improved. Afebrile. White count downtrending. Creatinine down to 1.9. LFTs improving. Stable hemodynamics. 12/09. Diarrhea improved. Afebrile. Complains of herpetic lesions and pain. S tarted on acyclovir. Continuing oral vancomycin. No overnight fever chills. Echo pending. White count up at 17.2. Sodium improved to 1 31-1 37. Creatinine at 2. LFTs downtrending. T-max 99.9. Patient was in brief episode of A. fib RVR requiring diltiazem and subsequently converted to sinus - Constitutional Vitals: Vital Signs Temp Pulse Resp BP Pulse Ox 97.1 F 74 13 118/74 100 12/10/19 08:15 12/10/19 00:38 12/10/19 10:16 12/10/19 10:10 12/10/19 10:16 Period Temp Pulse Resp BP Sys/Mcgowan Pulse Ox Last 24 Hr 97.1 F-99.9 F 71-125 11-24 103-152/45-84 90-100 Intake and Output 12/09/19 12/10/19 12/10/19 21:59 05:59 13:59 Intake Total 450 296 Output Total 100 Balance 350 296 Weight 226 lb 11.2 oz Intake & Output: Intake & Output 12/09/19 12/10/19 12/10/19 21:59 05:59 13:59 Intake Total 450 296 Output Total 100 Balance 350 296 Weight 226 lb 11.2 oz Intake: IV 30 246 Sodium Chloride 0.9% 250 ml @ 197 20 mls/hr IV .[id number] [facility] Rx#: [id number] Cardizem 125 mg In Dextrose 5% 30 49 in Water 100 ml @ 5 MG/HR 5 mls /hr IV Q12H [facility] Rx#:[id number] Oral 420 50 Output: Void Amount 100 Other: Urine Appearance Clear Urine Color Dark Yellow Urine Odor Strong Stool Size Smear Small Stool Color Brown Brown Stool Consistency Loose Loose # Voids 1 2 # Bowel Movements 1 # of times incontinent of 1 Bowels # Emeses 0 General appearance: no acute distress Exam: Appears fatigued lethargic Nonlabored breathing Minimal abdominal discomfort No lymphedema No anxiety Medical - PN: Obj Da - Labs CBC & Chem 7: 12/10/19 04:42 12/10/19 04:42 Labs: Abnormal Lab Results 12/10/19 12/10/19 12/09/19 04:42 04:42 04:40 WBC 17.2 H RBC 3.13 L Hgb 9.7 L Hct 29.4 L POC Hct Gran % Lymph % (Auto) Gran # Lymph # (Auto) Seg Neutrophils % 79 H Band Neutrophils % Lymphocytes % 8 L Ovalocytes Sodium 131 L Carbon Dioxide 18 L 19 L POC BUN BUN 25 H 28 H Creatinine 2.0 H 1.9 H POC Creatinine Glucose 116 H POC Glucose Calcium 7.7 L 8.2 L POC WB Ioniz Calcium AST 44 H 55 H ALT 56 H 72 H Lactate Dehydrogenase 297 H Total Protein 5.1 L 5.6 L Albumin 2.5 L 2.8 L Albumin/Globulin Ratio 12/09/19 12/08/19 12/08/19 04:40 04:45 04:45 WBC 14.6 H 14.7 H RBC 3.22 L 3.09 L Hgb 10.0 L 9.6 L Hct 30.1 L 29.2 L POC Hct Gran % Lymph % (Auto) Gran # Lymph # (Auto) Seg Neutrophils % 80 H 85 H Band Neutrophils % 14 H Lymphocytes % 2 L 5 L Ovalocytes Few A Sodium 130 L Carbon Dioxide 20 L POC BUN BUN 35 H Creatinine 2.2 H POC Creatinine Glucose 142 H POC Glucose Calcium 8.1 L POC WB Ioniz Calcium AST 73 H ALT 94 H Lactate Dehydrogenase Total Protein 5.6 L Albumin 2.7 L Albumin/Globulin Ratio 0.9 L 12/07/19 12/07/19 18:31 18:31 WBC 14.1 H RBC 3.41 L Hgb 10.7 L Hct 32.0 L POC Hct 32.0 L Gran % 89.0 H Lymph % (Auto) 5.1 L Gran # 12.54 H Lymph # (Auto) 0.72 L Seg Neutrophils % Band Neutrophils % Lymphocytes % Ovalocytes Sodium Carbon Dioxide 20 L POC BUN 34 H BUN 38 H Creatinine 2.5 H POC Creatinine 2.7 H Glucose 155 H POC Glucose 149 H Calcium 8.2 L POC WB Ioniz Calcium 1.10 L AST 101 H ALT 118 H Lactate Dehydrogenase Total Protein Albumin Albumin/Globulin Ratio Meds: Medications Acetaminophen (Tylenol) 650 mg PO Q4-6HP PRN; Protocol PRN Reason: Per Pain Protocol/Fever > 101 Acyclovir (Zovirax) 800 mg PO 5XD [facility] Stop: 12/17/19 08:01 Last Admin: 12/10/19 09:57 Dose: 800 mg Documented by: Allopurinol (Zylopriim) 300 mg PO QDAY [facility] Last Admin: 12/10/19 09:57 Dose: 300 mg Documented by: Aspirin (Aspirin) 81 mg PO DAILY [facility] Last Admin: 12/10/19 09:57 Dose: 81 mg Documented by: Bisacodyl (Dulcolax) 10 mg SC Q2-3DAYS PRN PRN Reason: Constipation Cyanocobalamin (Vitamin B-12) 500 mcg PO QHS [facility] Last Admin: 12/09/19 20:46 Dose: 500 mcg Documented by: Docusate Sodium (Colace) 100 mg PO BID [facility] Last Admin: 12/10/19 09:33 Dose: Not Given Documented by: Fexofenadine HCl (Asia) 180 mg PO QDAY [facility] Last Admin: 12/10/19 09:57 Dose: 180 mg Documented by: Folic Acid (Folic Acid) 1 mg PO DAILY [facility] Last Admin: 12/10/19 09:57 Dose: 1 mg Documented by: Guaifenesin/Codeine Phosphate (Robitussin Ac) 10 ml PO Q4HP PRN PRN Reason: Cough Heparin Sodium (Porcine) (Heparin) 5,000 unit SQ Q12 [facility] Last Admin: 12/10/19 09:57 Dose: 5,000 unit Documented by: Hydromorphone HCl (Dilaudid) 0 mg IV Q4HP PRN; Protocol PRN Reason: Per Pain Protocol Last Admin: 12/08/19 01:50 Dose: 0.5 mg Documented by: Magnesium Sulfate (Magnesium Sulfate) 2 gm in 50 mls @ 50 mls/hr IV UD PRN PRN Reason: MG = or < 1.7 Potassium Chloride 40 meq/ (Dextrose) 520 mls @ 130 mls/hr IV UD PRN PRN Reason: K+ = or < 3.5 Diltiazem HCl 125 mg/ Dextrose 125 mls @ 5 mls/hr IV Q12H [facility]; Protocol Last Admin: 12/10/19 02:16 Dose: Not Given Documented by: Sodium Chloride (Sodium Chloride 0.9%) 250 mls @ 20 mls/hr IV .[id number] [facility] Last Admin: 12/10/19 05:46 Dose: Not Given Documented by: Iron Carb/Multivit/[place]/Folic Acid (Multivitamin W/Minerals) 1 tab PO DAILY [facility] Last Admin: 12/10/19 09:57 Dose: 1 tab Documented by: Losartan Potassium (Cozaar) 50 mg PO QDAY [facility] Last Admin: 12/10/19 09:57 Dose: 50 mg Documented by: Melatonin (Melatonin 3mg Tablet) 3 mg PO HSP PRN PRN Reason: Insomnia Ondansetron HCl (Zofran Odt) 4 mg SL Q4-6HP PRN; Protocol PRN Reason: Nausea And Vomiting Ondansetron HCl (Zofran) 4 mg IV Q4-6HP PRN; Protocol PRN Reason: Nausea And Vomiting Last Admin: 12/08/19 09:10 Dose: 4 mg Documented by: Polyethylene Glycol (Miralax) 17 gm PO DAILYP PRN PRN Reason: Constipation Potassium Chloride (Klor-Con) 40 meq PO DAILYP PRN PRN Reason: K+ < 3.5 Last Admin: 12/08/19 08:02 Dose: 40 meq Documented by: Sodium Chloride (Saline Flush) 10 ml IV Q8 [facility] Last Admin: 12/10/19 05:46 Dose: Not Given Documented by: Vancomycin HCl (Vancomycin Oral Lucie) 250 mg PO QID [facility]; Protocol Last Admin: 12/10/19 09:57 Dose: 250 mg Documented by: Medical - PN: A/P - Time Spent With Patient Total time spent is greater than 50% in coordination of care (as documented) at patient's floor/unit and/or counseling patient: 25 - 35 minutes (1) Acute colitis Status: Acute Assessment and plan: * C. difficile entero-colitis -White count up trending. Worsening diarrhea. Continue oral vancomycin. Continue seizure precautions * Severe sepsis with multiple endorgan dysfunction including mild SHAYY/A. fib RVR and mental status change.-clinically improving with downtrending white count * A. fib RVR with bundle branch on diltiazem drip. Rate controlled on diltiazem and subsequently converted to sinus. * Mental status change resolved * Herpes zoster pain-oral acyclovir * Elevated LFTs secondary to sepsis endorgan dysfunction. Downtrending * Volume depletion secondary to diarrhea-resolved crystalloids * Acute on chronic renal failure-resolve. Creatinine close to baseline * History of gout continue allopurinol * History of hypertension -restart antihypertensives * Hyperlipidemia continue statin * Prophylaxis heparin Plan * Continue oral vancomycin * Cardizem for rate control * Start acyclovir * Pre-existing medical condition management as above * Advance diet as tolerated * PT OT Current Visit: Yes Medical - PN: Qual - VTE Deep Vein Thrombosis/Pulmonary Embolism Present on Admission: No
[2019-12-10] MEDS ORDERED: DILTIAZEM 125 MG in DEXTROSE 5% IN WATER 100 ML IV PRN (14:00)
[2019-12-10] MEDS: GABAPENTIN 300 MG CAPSULE PO SCH (20:37)
[2019-12-10] MEDS: CYANOCOBALAMIN (VITAMIN B-12) 500 MCG TABLET PO SCH (20:37)
[2019-12-11] MEDS: 0.9 % SODIUM CHLORIDE 250 ML IV SCH (06:05)
[2019-12-11] MEDS: 0.9 % SODIUM CHLORIDE 10 ML SYRINGE IV SCH (06:06)
[2019-12-11 06:39] LABS: Hematocrit 28.7 % (40.1-51.0); Hemoglobin 9.3 g/dL (13.7-17.5); Mean Cell Volume 94.4 fL (80.0-100.0); Mean Corpuscular HGB Conc 32.4 g/dL (31.0-36.0); Platelet Count 279 K/mcL (140-440); RBC 3.04 M/mcL (4.63-6.08); Red Cell Distribution Width 13.2 % (11.5-14.5); WBC 13.5 K/mcL (4.50-11.00)
[2019-12-11 07:09] LABS: ALT/SGPT 73 U/l (0-40); AST/SGOT 85 U/l (0-37); Albumin 2.6 gm/dL (3.2-5.2); Alkaline Phosphatase 89 U/L (39-117); Bilirubin,Direct < 0.2 mg/dL (0.0-0.3); Bilirubin,Total 0.4 mg/dL (0.0-1.0); Blood Urea Nitrogen 30 mg/dl (8-23); Calcium 7.8 mg/dl (8.6-10.4); Carbon Dioxide 20 mmol/L (22-30); Chloride 102 mmol/L (96-108); Globulin 2.5 gm/dL (2.2-3.7); Glomerular Filtration Rate 30; Glucose 111 mg/dL (70-105); Lactate Dehydrogenase 244 U/L (94-250); Phosphorous 2.9 mg/dL (2.7-4.5); Triglycerides 78 mg/dl (<150); Uric Acid 4.9 mg/dL (2.5-8.0)
[2019-12-11] MEDS: ALLOPURINOL 300 MG TABLET PO SCH (08:11)
[2019-12-11] MEDS: ACYCLOVIR 400 MG TABLET PO SCH ×2 (08:11→12:24)
[2019-12-11] MEDS: FEXOFENADINE 180 MG TABLET PO SCH (08:11)
[2019-12-11] MEDS: MULTIVIT,THER IRON,CA,FA & MIN 1 TABLET PO SCH (08:12)
[2019-12-11] MEDS: ASPIRIN 81 MG TAB.CHEW PO SCH (08:12)
[2019-12-11] MEDS: HEPARIN 5,000 UNIT/ML VIAL SQ SCH (08:12)
[2019-12-11] MEDS: LOSARTAN 50 MG TABLET PO SCH (08:12)
[2019-12-11] MEDS: FOLIC ACID 1 MG TABLET PO SCH (08:12)
[2019-12-11] MEDS: DOCUSATE SODIUM 100 MG CAPSULE PO SCH (08:12)
[2019-12-11] MEDS: GABAPENTIN 300 MG CAPSULE PO SCH (08:13)
[2019-12-11 08:21] LABS: Band Neutrophils % 15 % (0-10); Eosinophils % (Manual) 3 % (0-7); Lymphocytes % 8 % (15-49); Monocytes % (Manual) 1 % (1-12); Platelet Estimate NORMAL (NORMAL); RBC Morphology NORMAL (NORMAL); Segmented Neutrophils % 73 % (38-78)
[2019-12-11] MEDS: VANCOMYCIN ORAL SOL 1,000 MG/10 ML BOTTLE PO SCH ×2 (08:23→12:24)
[2019-12-11] MEDS ORDERED: FUROSEMIDE 20 MG TABLET PO SCH (09:00)
[2019-12-11] MEDS ORDERED: ATORVASTATIN 40 MG TABLET PO SCH (09:00)
--- NOTE | 2019-12-11 11:32 | Discharge Summary ---
Medical - DS: Prov Patient information: Note initiated : 12/11/19 at 11:21 am Service Date, if different from initiated Date: [] Patient: Vladimir Hinojosa 79 y/o M admitted on 12/07/19 for diarrhea. Chief Complaint: [] Date of admission: 12/07/19 23:44 Discharge date: 12/11/19 Primary care physician: Nargis Ríos Consults: 12/08/19 17:36 Consult to Physician [CONS] Routine Comment: late order consult Consulting Provider: Deon Carlson Reason For Exam: Physician to Consult Medical - DS: Meds - Discharge Medications Prescriptions: Vancomycin Oral Lucie 250 mg PO QID 14 Days #14 bottle Transmission Status: Pending to [facility] Acyclovir [Zovirax] 800 mg PO 5XD #20 tab Transmission Status: Pending to [facility] Active and Home Medications: Home Medications aspirin 81 mg tablet,delayed release 81 mg PO QDAY 03/10/17 [History Confirmed 12/08/19 Last Taken 12/06/19 21:00] omega-3 360 lp-gii-wqo-fish oil 1,200 mg capsule,delayed release 1 cap PO QHS cap 05/02/17 [History Confirmed 12/08/19 Last Taken 12/06/19 20:00] cholecalciferol (vitamin D3) 25 mcg (1,000 unit) capsule 1,000 unit PO QHS cap 08/09/17 [History Confirmed 12/08/19 Last Taken 12/07/19 08:00] folic acid 800 mcg tablet 400 mcg PO QDAY 08/09/17 [History Confirmed 12/08/19 Last Taken 12/07/19 08:00] mecobalamin (vitamin B12) 1,000 mcg disintegrating tablet,sublingual 500 mcg SUBLINGUAL QHS tab 08/09/17 [History Confirmed 12/08/19 Last Taken 12/07/19 13:00] allopurinol 300 mg tablet 300 mg PO QDAY #90 tab 11/16/18 [Rx Confirmed 12/08/19 Last Taken 12/07/19 08:00] atorvastatin 40 mg tablet 40 mg PO QDAY #90 tab 11/16/18 [Rx Confirmed 12/09/19 Last Taken Unknown] furosemide 20 mg tablet 20 mg PO QAM #90 tab 11/16/18 [Rx Confirmed 12/08/19 Last Taken 12/07/19 08:00] losartan 50 mg tablet 50 mg PO QDAY #90 tab 11/16/18 [Rx Confirmed 12/08/19 Last Taken 12/07/19 08:00] fexofenadine 180 mg tablet 180 mg PO QDAY #30 tab 06/12/19 [Rx Confirmed 12/08/19 Last Taken 12/07/19 21:00] Gabapentin [Neurontin] 600 mg PO BID 12/08/19 [History Confirmed 12/08/19 Last Taken 12/07/19 08:00] Acyclovir [Zovirax] 800 mg PO 5XD #20 tab 12/11/19 [Rx Last Taken Unknown] Vancomycin Oral Lucie 250 mg PO QID 14 Days #14 bottle 12/11/19 [Rx Last Taken Unknown] Medical - DS: Hosp Hospital Course: Discharge diagnosis * C. difficile entero-colitis -clinically improved on oral vancomycin. Diarrhea improved. * Severe sepsis with multiple endorgan dysfunction including mild SHAYY/A. fib RVR and mental status change.-clinically improving with downtrending WBC * A. fib RVR with bundle branch on diltiazem drip. Transient now in sinus. * Mental status change secondary to sepsis. Resolved and back at baseline * Herpes zoster pain-continue oral acyclovir * Elevated LFTs secondary to sepsis endorgan dysfunction. Downtrending * Volume depletion secondary to diarrhea-resolved crystalloids * Acute on chronic renal failure-resolve. Creatinine close to baseline * History of gout continue allopurinol * History of hypertension -continue home dose antihypertensives * Hyperlipidemia continue statin Brief hospital course Mr. Hinojosa is a 78 year old M with a history of hypertension, gout who lives with his in [place] and presents after 2 weeks onset of intermittent abdominal cramping, diarrhea and nausea along with loss of appetite. Patient has been getting gradually getting weak along with increasing cramping. He describes diarrhea as watery with mucus without blood 3-4 times a day normal volume. He denies associated joint pain, rash, dysuria but endorses to shaking chills and intermittent fevers. He denies bloody stool or bloody emesis. With worsening symptoms he presents to the ER. Initial work-up was consistent with pancolitis on CT. Was started on IV fluids/antibiotics after cultures were drawn. Hospitalist service was consulted. At the time evaluation patient is accompanied with his . He denies recent exposure to sick contacts or antibiotic use. He further denies consuming raw or uncooked meat or seafood. He denies changes in medications. He denies weight loss or change in stool caliber. 12/07-C. difficile positive. Started on oral vancomycin. Continue seizure precautions. No overnight fever chills. White count 14.7, sodium 130, creatinine 2.2, fever down from 10 1-98.5. Patient does not feel well and complains of loss of appetite. Multiple bowel movement since last night. CT abdomen shows severe concentric wall thickening of descending/proximal sigmoid: Consistent with colitis 12/08-patient clinically improving. Diarrhea improved. Nausea improved. Afebrile. White count downtrending. Creatinine down to 1.9. LFTs improving. Stable hemodynamics. 12/09. Diarrhea improved. Afebrile. Complains of herpetic lesions and pain. Started on acyclovir. Continuing oral vancomycin. No overnight fever chills. Echo pending. White count up at 17.2. Sodium improved to 1 31-1 37. Creatinine at 2. LFTs downtrending. T-max 99.9. Patient was in brief episode of A. fib RVR requiring diltiazem and subsequently converted to sinus 12/10-patient doing well. Diarrhea improved. Abdominal pain improved. White count downtrending from 17.2 -> 13.5. Intra-abdominal tenderness. Continuing oral vancomycin. Requesting discharge. Instructed to follow primary care physician after completion of 14 days oral vancomycin. Renal function stable with creatinine 2 at baseline Discharge diagnosis: . - Time Spent with Patient Total time spent providing and/or coordinating discharge services: Greater than 30 minutes Medical - DS: Exam - Constitutional Vitals: Vital Signs Temp Pulse Resp BP Pulse Ox 12/11/19 11:09 97 F 96 12/11/19 10:01 17 139/75 98 12/11/19 09:03 17 12/11/19 08:25 12 134/71 100 12/11/19 08:24 22 134/71 91 12/11/19 08:00 74 22 100 12/11/19 06:59 17 91 12/11/19 04:31 93 12/11/19 04:00 98.1 F 12 116/63 93 12/11/19 02:49 19 12/11/19 02:00 11 L 110/49 12/11/19 00:45 69 91 12/11/19 00:00 99.0 F 17 128/63 95 12/10/19 22:01 20 108/49 93 12/10/19 20:30 70 93 12/10/19 20:01 99.6 F H 18 119/56 97 12/10/19 19:01 17 129/61 94 12/10/19 18:01 18 127/56 12/10/19 17:01 130/60 96 12/10/19 17:00 96 12/10/19 16:02 18 97 12/10/19 16:01 98.7 F 15 123/60 94 12/10/19 15:19 18 93 12/10/19 15:01 15 116/61 95 12/10/19 14:05 9 L 94 12/10/19 14:01 119/57 95 12/10/19 14:00 74 15 97 12/10/19 13:36 11 L 96 12/10/19 13:35 14 120/57 98 12/10/19 13:08 12 94 12/10/19 12:01 120/59 95 12/10/19 12:00 95 12/10/19 11:54 16 117/58 97 Intake and Output 12/10/19 12/11/19 12/11/19 21:59 05:59 13:59 Intake Total 730 120 240 Output Total 200 Balance 730 -80 240 Intake: IV 250 Sodium Chloride 0.9% 250 ml @ 250 20 mls/hr IV .[id number] [facility] Rx#: [id number] Oral 480 120 240 Output: Urine/Stool Mix 200 Other: Meal Breakfast Percent of Meal Consumed 100% Urine Appearance Clear Urine Color Dark Yellow Urine Odor Strong Stool Size Small Small Moderate Stool Color Brown Brown Brown Stool Consistency Loose Loose Loose # Voids 1 1 # Bowel Movements 1 1 # Emeses 0 0 Weight 231 lb 9.6 oz Medical - DS: Data Labs on day of discharge: Labs from last 24 hours 12/11/19 12/11/19 04:29 04:29 WBC 13.5 H RBC 3.04 L Hgb 9.3 L Hct 28.7 L MCV 94.4 MCH 30.6 MCHC 32.4 RDW 13.2 Plt Count 279 MPV 10.0 Total Counted 100 Seg Neutrophils % 73 Band Neutrophils % 15 H Lymphocytes % 8 L Monocytes % (Manual) 1 Eosinophils % (Manual) 3 Platelet Estimate Normal RBC Morphology Normal Sodium 134 Potassium 3.6 Chloride 102 Carbon Dioxide 20 L Anion Gap 12.0 BUN 30 H Creatinine 2.0 H GFR Calculation 30 Glucose 111 H Uric Acid 4.9 Calcium 7.8 L Phosphorus 2.9 Magnesium 2.1 Total Bilirubin 0.4 Direct Bilirubin < 0.2 GGT 25 AST 85 H ALT 73 H Alkaline Phosphatase 89 Lactate Dehydrogenase 244 Total Protein 5.1 L Albumin 2.6 L Globulin 2.5 Albumin/Globulin Ratio 1.0 Triglycerides 78 Preliminary micro results at discharge 12/07/19 22:35 Blood Culture - Preliminary Blood 12/07/19 22:30 Blood Culture - Preliminary Blood Medical - DS: A/P - Patient/Caregiver Discharge Instructions Activity: as per physical therapy, increase activity as tolerated Diet: Regular Diet Additional Instructions: Follow-up PCP in 5 days Continue oral vancomycin 14 days I recommend primary care physician to check CBC BMP UA as a posthospital follow- up in 1 week. Continue fall precautions All meals on chair sitting upright at 90 degrees to prevent aspiration Return to ER if worsening fever chills shortness of breath, diarrhea, bleeding Continue diet and activity as advised Discussed importance of medication adherence Please review medication list with patient prior to discharge Please schedule follow-up with PCP/Providers prior to discharge and provide printouts Prescriptions: Vancomycin Oral Lucie 250 mg PO QID 14 Days #14 bottle Transmission Status: Pending to [facility] Acyclovir [Zovirax] 800 mg PO 5XD #20 tab Transmission Status: Pending to [facility] - Problem Maintenance (1) Acute colitis Status: Acute - Follow up Plan Follow up with: Nargis Ríos MD [Primary Care Provider] - 12/24/19 10:00 am Disposition: Home, Self-Care Care Plan Goals: This discharge packet is provided to you to help keep you informed about your care. We want to ensure you get everything you need when you go home. You will also be receiving a call from us in a few days to follow up with you and see how you are doing since your discharge. This gives us a chance to listen to any concerns you maybe experiencing since you were discharged or any additional needs you may have, as well as providing us feedback on your care experience. We strive to always provide excellent care and thank you for your feedback and for choosing [facility]. Prognosis: Fair Rehab Potential: Fair I certify that the patient requires SNF services: No Overall status at discharge: patient is progressing back to baseline Medical - DS: Qual - VTE Deep Vein Thrombosis/Pulmonary Embolism Present on Admission: No
== END 2019-12-11 12:55 | disposition home or self-care (01) | DRG 871 ==
LOC: ED 17:33 → ICU 23:43
PROVIDERS: ADMIT Internal Medicine; ATTEND Internal Medicine